=== PATIENT | female | born 1950 | race Caucasian/White ===

== ENCOUNTER 2016-06-26 15:42 | Emergency (ER) | payer BC ==
[2016-06-26] MEDS ORDERED: Sodium Chloride 0.9% 1,000 ML IV ONE (16:03)
[2016-06-26 16:28] LABS: CHLORIDE,CL 103 mmol/L (98-110); SODIUM,NA 138 mmol/L (136-146)
[2016-06-26] MEDS ORDERED: Ondansetron 4 MG/2 ML SDV IVPUSH ONE (16:53)
[2016-06-26] MEDS ORDERED: Alum Hydrox/Mag Hydrox/Simeth 15 ML, Metoclopramide 5 MG, Lidocaine 2% 5 ML PO ONE ×3 (17:40)
--- NOTE | 2016-06-26 17:47 | EDM.PDOC ---
ED HPI GI/ABDOMINAL - General Chief Complaint: Abdominal Pain Stated Complaint: UPPER RIB CAGE HURTS Time Seen by Provider: 06/26/16 15:50 Source of Information: Reports: Patient History Limitations: Reports: No limitations - History of Present Illness INITIAL COMMENTS - FREE TEXT/NARRATIVE: HISTORY AND PHYSICAL: History of present illness: [Patient comes to emergency room complaining of epigastric discomfort. She describes a pressure-like sensation in her upper abdomen. Rates 7/10. No stabbing or burning. Symptoms began yesterday and continued into today. She's felt feverish at times. She's not had any vomiting but has had some nausea and wretching without vomitus. No radiation of pain to any other areas. No chest pain, shortness of breath, or difficulty breathing. She does note that taking a deep breath seems to worsen the pain to her upper abdomen. Denies diarrhea. She felt constipated earlier today and took a Dulcolax which resulted in a normal bowel movement. No burning with urination or blood in her urine. Denies earache , headache, sore throat. No body aches or cough. No chest congestion. No ill contacts at home. Has a history of gastric bypass in 2004. Her regular PCP is Dr. Lund in [place].] Review of systems: As per history of present illness and below otherwise all systems reviewed and negative. Past medical history: As per history of present illness and as reviewed below otherwise noncontributory. Surgical history: As per history of present illness and as reviewed below otherwise noncontributory. Social history: No reported history of drug or alcohol abuse. Family history: As per history of present illness and as reviewed below otherwise noncontributory. Physical exam: HEENT: Atraumatic, normocephalic. Oral make his membranes are pink and moist tonsillar swelling erythema or exudate., pupils reactive, negative for conjunctival pallor or scleral icterus, mucous membranes moist, throat clear, neck supple, nontender, trachea midline. Lungs: Clear to auscultation, breath sounds equal bilaterally, no wheezing crackles or rales.. Heart: S1S2, regular rate and rhythm. Abdomen: Normoactive bowel sounds. Abdomen is Soft, nondistended. She is tender over her epigastric area. No radiation of pain with palpation. No masses guarding or rebound. No pulsatile masses noted. Negative for masses or hepatosplenomegaly. Negative for costovertebral tenderness. Pelvis: Stable nontender. Genitourinary: Deferred. Rectal: Deferred. Extremities: Atraumatic, negative for cords or calf pain. No cyanosis or edema to feet or lower legs. Neurovascular unremarkable. Neuro: Awake, alert, oriented. Cranial nerves II through XII unremarkable. Exam nonfocal. Diagnostics: [CBC, CMP, amylase, lipase, UA] Therapeutics: [Zofran 4 mg IV, GI cocktail] Impression: [Epigastric pain] Plan: [Patient noticed the most improvement in her symptoms following IV administration of Zofran. Her discomfort improves to 5/10. She declines any pain medication CT scan and hospitalization. Will treat as epigastric pain due to gastroenteritis due to her fever, vomiting and presentation. Recommend she push fluids, get plenty of rest. Clear liquid diet until her symptoms have resolved. She is in agreement with today's plan. All of her questions are answered and concerns are addressed. Rx written for Zofran 4 mg #10 sig one by mouth every 6 hours as needed for nausea no refills] Definitive disposition and diagnosis as appropriate pending reevaluation and review of above. - Related Data Allergies/ADRs: Allergies Allergy/AdvReac Type Severity Reaction Status Date / Time No Known Allergies Allergy Verified 06/26/16 15:51 Home Meds: Home Meds Hydrocodone/Acetaminophen [Hydrocodon-Acetaminophen 5-325] 0.5 each PO BEDTIME 06/26/16 [History] Past Medical History Musculoskeletal History: Reports: Arthritis - Past Surgical History GI Surgical History: Reports: Bariatric procedure, Cholecystectomy Musculoskeletal Surgical History: Reports: Joint replacement Social & Family History - Family History Cardiac: Reports: Other (see below) Other Cardiac Family History: possibly grandparents - Tobacco Use Smoking Status *Q: Never Smoker - Recreational Drug Use Recreational Drug Use: No ED ROS GENERAL - Review of Systems Review Of Systems: ROS reveals no pertinent complaints other than HPI. ED EXAM, GI/ABD - Physical Exam Exam: See Below Course - Vital Signs Last Recorded V/S: Last Vital Signs Temp 97.2 F 06/26/16 18:22 Pulse 78 06/26/16 18:22 Resp 16 06/26/16 18:22 BP 160/70 H 06/26/16 18:22 Pulse Ox 98 04/08/17 18:22 - Orders/Labs/Meds Orders: Active Orders 24 hr Category Date Time Status EKG Documentation Completion [RC] STAT Care 06/26/16 16:03 Active Labs: Laboratory Tests 06/26/16 06/26/16 06/26/16 Range/Units 16:00 16:00 16:03 WBC 7.45 (4.0-11.0) K/uL RBC 5.02 (4.30-5.90) M/uL Hgb 14.5 (12.0-16.0) g/dL Hct 43.2 (36.0-46.0) % MCV 86.1 (80.0-98.0) fL MCH 28.9 (27.0-32.0) pg MCHC 33.6 (31.0-37.0) g/dL RDW Std Deviation 44.9 (28.0-62.0) fl RDW Coeff of Ronaldo 15 (11.0-15.0) % Plt Count 294 (150-400) K/uL MPV 10.10 (7.40-12.00) fL Neut % (Auto) 65.1 (48.0-80.0) % Lymph % (Auto) 25.0 (16.0-40.0) % [place] % (Auto) 9.4 (0.0-15.0) % Eos % (Auto) 0.0 (0.0-7.0) % Baso % (Auto) 0.5 (0.0-1.5) % Neut # (Auto) 4.9 (1.4-5.7) K/uL Lymph # (Auto) 1.9 (0.6-2.4) K/uL [place] # (Auto) 0.7 (0.0-0.8) K/uL Eos # (Auto) 0.0 (0.0-0.7) K/uL Baso # (Auto) 0.0 (0.0-0.1) K/uL Nucleated RBC % 0.0 /100WBC Nucleated RBCs # 0 K/uL Sodium 138 (136-146) mmol/L Potassium 3.6 (3.5-5.1) mmol/L Chloride 103 (98-110) mmol/L Carbon Dioxide 21 (21-31) mmol/L BUN 14 (6.0-23.0) mg/dL Creatinine 0.8 (0.6-1.5) mg/dL Est Cr Clr Drug Dosing 54.71 mL/min Estimated GFR (MDRD) > 60.0 ml/min Glucose 150 H (60-110) mg/dL Calcium 9.6 (8.8-10.8) mg/dL Total Bilirubin 0.7 (0.1-1.5) mg/dL AST 30 (5-40) IU/L ALT 29 (8-54) IU/L Alkaline Phosphatase 136 (40-150) Troponin I < 0.10 (0.0-0.29) NG/ML Total Protein 7.9 (6.0-8.0) g/dL Albumin 4.2 (3.4-4.8) g/dL Globulin 3.7 H (2.0-3.5) g/dL Albumin/Globulin Ratio 1.1 L (1.3-2.8) Amylase 44 (10-90) U/L Lipase 37 (7-80) U/L Urine Color Urine Appearance Urine pH (5.0-8.0) Ur Specific Baker (1.001-1.035) Urine Protein (NEGATIVE) mg/dL Urine Glucose (UA) (NEGATIVE) mg/dL Urine Ketones (NEGATIVE) mg/dL Urine Occult Blood (NEGATIVE) Urine Nitrite (NEGATIVE) Urine Bilirubin (NEGATIVE) Urine Urobilinogen (<2.0) EU/dL Ur Leukocyte Esterase (NEGATIVE) Urine RBC (0-2/HPF) Urine WBC (0-5/HPF) Ur Epithelial Cells (NONE-FEW) Urine Bacteria (NEGATIVE) Urine Mucus (NONE-MOD) 06/26/16 Range/Units 17:35 WBC (4.0-11.0) K/uL RBC (4.30-5.90) M/uL Hgb (12.0-16.0) g/dL Hct (36.0-46.0) % MCV (80.0-98.0) fL MCH (27.0-32.0) pg MCHC (31.0-37.0) g/dL RDW Std Deviation (28.0-62.0) fl RDW Coeff of Ronaldo (11.0-15.0) % Plt Count (150-400) K/uL MPV (7.40-12.00) fL Neut % (Auto) (48.0-80.0) % Lymph % (Auto) (16.0-40.0) % [place] % (Auto) (0.0-15.0) % Eos % (Auto) (0.0-7.0) % Baso % (Auto) (0.0-1.5) % Neut # (Auto) (1.4-5.7) K/uL Lymph # (Auto) (0.6-2.4) K/uL [place] # (Auto) (0.0-0.8) K/uL Eos # (Auto) (0.0-0.7) K/uL Baso # (Auto) (0.0-0.1) K/uL Nucleated RBC % /100WBC Nucleated RBCs # K/uL Sodium (136-146) mmol/L Potassium (3.5-5.1) mmol/L Chloride (98-110) mmol/L Carbon Dioxide (21-31) mmol/L BUN (6.0-23.0) mg/dL Creatinine (0.6-1.5) mg/dL Est Cr Clr Drug Dosing mL/min Estimated GFR (MDRD) ml/min Glucose (60-110) mg/dL Calcium (8.8-10.8) mg/dL Total Bilirubin (0.1-1.5) mg/dL AST (5-40) IU/L ALT (8-54) IU/L Alkaline Phosphatase (40-150) Troponin I (0.0-0.29) NG/ML Total Protein (6.0-8.0) g/dL Albumin (3.4-4.8) g/dL Globulin (2.0-3.5) g/dL Albumin/Globulin Ratio (1.3-2.8) Amylase (10-90) U/L Lipase (7-80) U/L Urine Color YELLOW Urine Appearance CLEAR Urine pH 7.0 (5.0-8.0) Ur Specific Baker 1.010 (1.001-1.035) Urine Protein NEGATIVE (NEGATIVE) mg/dL Urine Glucose (UA) NEGATIVE (NEGATIVE) mg/dL Urine Ketones 15 H (NEGATIVE) mg/dL Urine Occult Blood NEGATIVE (NEGATIVE) Urine Nitrite NEGATIVE (NEGATIVE) Urine Bilirubin NEGATIVE (NEGATIVE) Urine Urobilinogen 0.2 (<2.0) EU/dL Ur Leukocyte Esterase NEGATIVE (NEGATIVE) Urine RBC 0-1 (0-2/HPF) Urine WBC 0-2 (0-5/HPF) Ur Epithelial Cells OCCASIONAL (NONE-FEW) Urine Bacteria RARE (NEGATIVE) Urine Mucus LIGHT (NONE-MOD) Meds: Medications Discontinued Medications Generic Name Dose Route Start Last Admin Trade Name Ana PRN Reason Stop Dose Admin Al Hydroxide/Mg Hydroxide 15 0 ml 06/26/16 17:40 06/26/16 17:48 ml/ Metoclopramide HCl 5 mg/ PO 06/26/16 17:41 25 each Lidocaine HCl 5 ml ONETIME ONE Administration Sodium Chloride 1,000 mls @ 500 mls/hr 06/26/16 16:03 06/26/16 16:00 Normal Saline IV 06/26/16 18:02 500 mls/hr .Bolus ONE Administration Ondansetron HCl 4 mg 06/26/16 16:53 06/26/16 16:58 Zofran IVPUSH 06/26/16 16:54 4 mg ONETIME ONE Administration Departure - Departure Time of Disposition: 18:15 Disposition: Home, Self-Care 01 Condition: good Clinical Impression: Epigastric abdominal pain Instructions: Heartburn, [id number] Referrals: PCP,None [Primary Care Provider] - Forms: ED Department Discharge Additional Instructions: The following information is given to patients seen in the emergency department who are being discharged to home. This information is to outline your options for follow-up care. We provide all patients seen in our emergency department with a follow-up referral. The need for follow-up, as well as the timing and circumstances, are variable depending upon the specifics of your emergency department visit. If you don't have a primary care physician on staff, we will provide you with a referral. We always advise you to contact your personal physician following an emergency department visit to inform them of the circumstance of the visit and for follow-up with them and/or the need for any referrals to a consulting specialist. The emergency department will also refer you to a specialist when appropriate. This referral assures that you have the opportunity for follow-up care with a specialist. All of these measure are taken in an effort to provide you with optimal care, which includes your follow-up. Under all circumstances we always encourage you to contact your private physician who remains a resource for coordinating your care. When calling for follow-up care, please make the office aware that this follow-up is from your recent emergency room visit. If for any reason you are refused follow-up, please contact the [facility] emergency department at and asked to speak to the emergency department charge nurse. [facility] [address] [place] [id number] Your symptoms appear most consistent with a viral gastroenteritis. You may take the anti-nausea medication every 6 hours as needed for nausea. Push fluids, get plenty of rest. You may gradually increase diet as tolerated. Recommend Tylenol for fever or discomfort. Followup with primary care provider at the clinic listed above in 48-72 hours. Return to ER as needed as discussed. - My Orders Last 24 Hours: My Active Orders 06/26/16 16:03 EKG Documentation Completion [RC] STAT - Assessment/Plan Last 24 Hours: My Active Orders 06/26/16 16:03 EKG Documentation Completion [RC] STAT
[2016-06-26 18:25] VITALS: BP 160/70
== END 2016-06-26 18:22 | disposition home or self-care (01) ==
LOC: MW.ED 15:42
DX: R10.13 Epigastric pain (principal); R10.30 Lower abdominal pain, unspecified; R50.9 Fever, unspecified; Z98.84 Bariatric surgery status; Z98.890 Other specified postprocedural states
CPT/HCPCS: 80053; 81001; 82150; 83690; 84484; 85025; 93005; 96361; 96374; 99284; A9270; J2405; J7040